=== PATIENT | male | born 1990 | race Caucasian/White ===

== ENCOUNTER 2018-07-15 15:51 | Emergency (ER) | payer SELFPAY ==
[~2018-07-15] VITALS: Ht 170.2 cm; Wt 98.6 kg
[~2018-07-15 15:51] MED LIST: DENIES; HYDR-3498 PO; IBUP-1542 PO; LORA-396
[2018-07-15 16:22] VITALS: BP 158/93; PULSE 82; RESP 18; Ht 170.2 cm; Wt 98.6 kg
== END 2018-07-15 20:40 | disposition left against medical advice (07) ==
LOC: FTE 15:51
DX: Z53.21 Procedure and treatment not carried out due to patient leaving prior to being seen by health care provider (principal)